=== PATIENT | male | born 1965 | race African-American/Black ===

== ENCOUNTER 2018-09-11 08:09 | Day surgery (SDC) | payer OTHER ==
[2018-09-10 11:56] VITALS: BMI 40.3
[2018-09-11 10:12] VITALS: TEMP 97.7
[2018-09-11 13:46] VITALS: BP 104/63; PULSE 70
--- NOTE | 2018-09-12 17:26 | PATH ---
Surgical Pathology Report Patient Name: ROXANE STAPLETON [facility]. Rec. #: [id number] /Age/Gender: 1965 (Age: 52) / M Account: [id number] Location: U-ENDOSCOPY Taken: 09/11/2018 Received: 09/11/2018 Reported: 09/12/2018 Physicians: Kike Griffin M.D. Specimen(s) Received A: BX RIGHT COLON POLYP B: BX DISTAL TRANSVERSE COLON POLYP Clinical History Colon cancer, screening Postoperative diagnosis: Diverticulosis, right colon polyp and distal transverse colon polyp Final Diagnosis A. COLON, RIGHT, POLYP, POLYPECTOMY: POLYPOID COLONIC MUCOSA WITH MILD CHRONIC ACTIVE COLITIS INCLUDING INCREASED ACUTE AND CHRONIC INFLAMMATORY INFILTRATE WITHIN LAMINA PROPRIA, MILD ARCHITECTURAL DISTORTION, AND PROMINENT LYMPHOID AGGREGATES. NO GRANULOMA OR DYSPLASIA IDENTIFIED. B. DISTAL TRANSVERSE COLON, POLYP, POLYPECTOMY: POLYPOID COLONIC MUCOSA WITH MILD CHRONIC ACTIVE COLITIS AND PROMINENT LYMPHOID AGGREGATES. NO GRANULOMA OR DYSPLASIA IDENTIFIED. Comment: Findings are non-specific. Differential diagnosis is broad, includes infection, medication, diverticular disease, and inflammatory bowel disease. Suggest clinical and endoscopic correlation. Electronically Signed Ines Blanchard M.D. Gross Description A. Received in formalin, labeled "right colon polyp" is a hilario, irregular portion of soft tissue measuring 0.5 cm. in greatest dimension. The specimen is submitted in toto in one cassette. B. Received in formalin, labeled "biopsy distal transverse colon polyp" are 3 hilario, irregular portions of soft tissue ranging from 0.1-0.3 cm. in greatest dimension. The specimens are submitted in toto in one cassette. DL/09/11/2018 saudi09/11/2018
== END 2018-09-11 11:05 | disposition home or self-care (01) ==
LOC: JASU-ENDO 08:09
PROVIDERS: ATTEND Internal Medicine Gastroenterology
PROC: 0DBL8ZX Excision of Transverse Colon, Via Natural or Artificial Opening Endoscopic, Diagnostic (ICD-10-PCS; 2018-09-11)
PROC: 0DBK8ZX Excision of Ascending Colon, Via Natural or Artificial Opening Endoscopic, Diagnostic (ICD-10-PCS; principal; 2018-09-11 09:15)
DX: Z12.11 Encounter for screening for malignant neoplasm of colon (principal); D12.2 Benign neoplasm of ascending colon; D12.3 Benign neoplasm of transverse colon; K57.30 Diverticulosis of large intestine without perforation or abscess without bleeding; K64.8 Other hemorrhoids; K52.9 Noninfective gastroenteritis and colitis, unspecified
CPT/HCPCS: 88305-TC

== ENCOUNTER 2021-09-14 15:16 | Observation (INO) | payer OTHER ==
[2021-09-14] MEDS ORDERED: SODIUM CHLORIDE 0.9% 500 ML INFUS.BAG IV ONE (16:59)
[2021-09-14 18:13] LABS: CHLORIDE 91 mmol/L (98-107); SODIUM 129 mmol/L (136-145)
[2021-09-14 18:15] LABS: CALCIUM 9.8 mg/dL (8.5-10.1)
[2021-09-14 18:16] LABS: URINE APPEARANCE CLEAR; URINE BILIRUBIN NEGATIVE (NEGATIVE); URINE COLOR YELLOW; URINE GLUCOSE (UA) 3+ (NEGATIVE); URINE KETONE 3+ (NEGATIVE); URINE LEUK ESTERASE NEGATIVE (NEGATIVE); URINE NITRITE NEGATIVE (NEGATIVE); URINE PROTEIN NEGATIVE (NEGATIVE); URINE UROBILINOGEN 0.2 mg/dL (0.2-1.0)
[2021-09-14 18:17] LABS: VENOUS BASE EXCESS -4.1 mmol/L (-2-2); VENOUS O2 SATURATION 95.2 % (70-80); VENOUS PH 7.38 (7.310-7.410)
[2021-09-14 18:17] LABS: ALBUMIN 4.2 g/dl (3.4-5.0); ANION GAP 16 MMOL/L (8-16); CO2 22 mmol/L (21-32)
[2021-09-14 18:20] LABS: CREATININE 1.4 mg/dL (0.55-1.3); SGOT/AST 21 U/L (15-37); SGPT/ALT 35 U/L (13-61); TOT PROT 7.8 g/dl (6.4-8.2)
[2021-09-14 18:21] LABS: BILIRUBIN,TOTAL 0.5 mg/dL (0.2-1)
[2021-09-14 18:23] LABS: ALK PHOS 105 U/L (45-117)
[2021-09-14 18:50] LABS: BASO % 0.6 % (0-2.0); EOS % 0.3 % (0-4.5); HEMATOCRIT 44.4 % (35.4-49); HEMOGLOBIN 13.6 GM/dL (11.7-16.9); LYMPH % 28.8 % (8-40); MCH 21.8 pg (25.7-33.7); MCHC 30.8 g/dl (32.0-35.9); MEAN CELL VOLUME 70.7 fl (80-96); NEUT % 60.3 % (42.8-82.8); PLATELET COUNT 176 10^3/uL (134-434); RBC 6.27 M/mm3 (4.00-5.60); RDW 14.7 % (11.9-15.9); WHITE BLOOD COUNT 5.5 K/mm3 (4.0-10.0)
[2021-09-14 19:33] LABS: GLUCOSE,RANDOM 552 mg/dL (74-106)
[2021-09-14] MEDS ORDERED: DEXTROSE 50%-WATER - 25 GM/50 ML VIAL IVPUSH PRN (19:43)
[2021-09-14] MEDS ORDERED: INSULIN REGULAR 100 UNITS in SODIUM CHLORIDE 99 ML IVPB SCH (19:45)
[2021-09-14] MEDS ORDERED: SODIUM CHLORIDE 0.9%/KCL 20 MEQ/1,000 ML INFUS.BAG IV SCH (20:00)
[2021-09-14 20:23] LABS: ANISOCYTOSIS 2+; MACROCYTOSIS 0; OVALOCYTE 1+; PLATELET ESTIMATE NORMAL; TARGET CELLS 1+
[2021-09-15 00:03] LABS: CALCIUM 8.7 mg/dL (8.5-10.1)
[2021-09-15 00:04] LABS: BLOOD UREA NITROGEN 10.1 mg/dL (7-18)
[2021-09-15 00:07] LABS: CREATININE 1.2 mg/dL (0.55-1.3)
[2021-09-15] MEDS ORDERED: DEXTROSE 5%-0.45% SALINE 1,000 ML IV SCH (03:45)
[2021-09-15] MEDS: INSULIN SLIDING SCALE (NOVOLOG) 1 VIAL SQ SCH ×4 (07:01→21:21)
[2021-09-15 09:08] LABS: BASO % 0.5 % (0-2.0); EOS % 2.8 % (0-4.5); HEMATOCRIT 39.3 % (35.4-49); HEMOGLOBIN 11.9 GM/dL (11.7-16.9); LYMPH % 43.6 % (8-40); MCH 21.5 pg (25.7-33.7); MCHC 30.3 g/dl (32.0-35.9); MEAN PLT VOLUME 10.8 fl (7.5-11.1); MONO % 10.3 % (3.8-10.2); NEUT % 42.8 % (42.8-82.8); PLATELET COUNT 151 10^3/uL (134-434); RBC 5.54 M/mm3 (4.00-5.60); RDW 14.6 % (11.9-15.9); WHITE BLOOD COUNT 5.3 K/mm3 (4.0-10.0)
[2021-09-15] MEDS ORDERED: HEPARIN NA (PORCINE) 5,000 UNITS/ML 1ML VIAL ONE (09:35)
[2021-09-15] MEDS: HEPARIN NA (PORCINE) 5,000 UNITS/ML 1ML VIAL SQ SCH ×2 (09:40→21:17)
[2021-09-15 10:09] LABS: BLOOD UREA NITROGEN 8.4 mg/dL (7-18); CALCIUM 8.2 mg/dL (8.5-10.1)
[2021-09-15 10:11] LABS: MAGNESIUM 2.1 mg/dL (1.8-2.4)
[2021-09-15 10:14] LABS: BILIRUBIN,TOTAL 0.6 mg/dL (0.2-1); CREATININE 0.9 mg/dL (0.55-1.3)
[2021-09-15 10:18] LABS: ALBUMIN 3.2 g/dl (3.4-5.0)
[2021-09-15] MEDS ORDERED: glipiZIDE-XL 5 MG TAB.ER.24 PO ONE (10:51)
[2021-09-15] MEDS ORDERED: ACETAMINOPHEN 325 MG TABLET (FP) PO PRN (12:16)
[2021-09-15] MEDS ORDERED: ACETAMINOPHEN 325 MG TABLET (FP) ONE (12:53)
[2021-09-15] MEDS ORDERED: FAMOTIDINE 20 MG TABLET ONE (12:56)
[2021-09-15] MEDS: FAMOTIDINE 20 MG TABLET PO SCH ×2 (12:57→21:17)
[2021-09-15 14:14] LABS: INR 0.99 (0.83-1.09); PROTHROMBIN TIME (PATIENT) 11.4 SEC (9.7-13.0)
[2021-09-15 15:50] VITALS: BMI 36.7
[2021-09-15] MEDS: metFORMIN HCL 500 MG TABLET (FP) PO SCH (16:36)
[2021-09-16 05:32] VITALS: BP 124/74
[2021-09-16] MEDS: INSULIN SLIDING SCALE (NOVOLOG) 1 VIAL SQ SCH ×2 (06:06→12:11)
[2021-09-16] MEDS: metFORMIN HCL 500 MG TABLET (FP) PO SCH ×2 (06:06→16:01)
[2021-09-16] MEDS ORDERED: glipiZIDE-XL 10 MG TAB.ER.24 (FP) PO SCH (07:00)
[2021-09-16] MEDS: HEPARIN NA (PORCINE) 5,000 UNITS/ML 1ML VIAL SQ SCH (09:55)
[2021-09-16] MEDS: FAMOTIDINE 20 MG TABLET PO SCH (09:55)
[2021-09-16] MEDS ORDERED: INSULIN (LEVEMIR) 100 UNITS/ML UNITS SQ SCH (10:00)
[2021-09-16] MEDS ORDERED: ENALAPRIL MALEATE 2.5 MG TABLET PO SCH (10:00)
[2021-09-16 10:19] LABS: BILIRUBIN,TOTAL 0.6 mg/dL (0.2-1); TOT PROT 5.7 g/dl (6.4-8.2)
[2021-09-16 10:22] LABS: CREATININE 0.9 mg/dL (0.55-1.3)
[2021-09-16 10:23] LABS: CALCIUM 8.5 mg/dL (8.5-10.1)
[2021-09-16 10:24] LABS: BLOOD UREA NITROGEN 8.3 mg/dL (7-18)
[2021-09-16] MEDS ORDERED: INSULIN (NOVOLOG) ASPART 100 UNITS/ML 10ML VIAL ONE (12:10)
[2021-09-16 13:10] VITALS: PULSE 95; TEMP 98.2
== END 2021-09-16 17:14 | disposition home or self-care (01) ==
LOC: JER 15:16 → UNDOADMOB 09-15 03:25 → JERBED 09-15 03:25 → INTOOBSV 09-15 03:25 → JERBED 09-15 11:22 → J8W 09-15 15:19
PROVIDERS: ADMIT Internal Medicine; ATTEND Internal Medicine
PROC: 3E013VG Introduction of Insulin into Subcutaneous Tissue, Percutaneous Approach (ICD-10-PCS; principal; 2021-09-15)
PROC: 3E033VG Introduction of Insulin into Peripheral Vein, Percutaneous Approach (ICD-10-PCS; 2021-09-15)
PROC: 3E033GC Introduction of Other Therapeutic Substance into Peripheral Vein, Percutaneous Approach (ICD-10-PCS; 2021-09-15)
PROC: 3E023GC Introduction of Other Therapeutic Substance into Muscle, Percutaneous Approach (ICD-10-PCS; 2021-09-15)
DX: E13.10 Other specified diabetes mellitus with ketoacidosis without coma (principal); R63.1 Polydipsia; R63.2 Polyphagia; E66.9 Obesity, unspecified; Z68.36 Body mass index [BMI] 36.0-36.9, adult; H53.8 Other visual disturbances; E78.5 Hyperlipidemia, unspecified; G20 Parkinson's disease; J45.909 Unspecified asthma, uncomplicated; R35.0 Frequency of micturition; R53.81 Other malaise; Z20.822 Contact with and (suspected) exposure to COVID-19; Z29.9 Encounter for prophylactic measures, unspecified
CPT/HCPCS: 36415; 71046-TC-FY; 80048; 80053; 80061; 81003; 82010; 82803; 82962; 83036; 83735; 85025; 85610; 87040; 87086; 99285-25; C9803; G0378; J1644; U0003; U0005

== ENCOUNTER 2023-02-05 18:01 | Emergency (ER) | payer OTHER ==
[2023-02-05 18:09] VITALS: BP 134/80; PULSE 87; RESP 18; TEMP 99.3; BMI 411.7
[2023-02-05] MEDS ORDERED: KETOROLAC TROMETHAMINE 15 MG/ML VIAL IM ONE (20:03)
[2023-02-05] MEDS ORDERED: ACETAMINOPHEN 500 MG TABLET (FP) PO ONE (20:03)
[2023-02-05] MEDS ORDERED: METHOCARBAMOL 500 MG TABLET PO ONE (20:04)
[2023-02-05] MEDS ORDERED: LIDOCAINE 5% TOPICAL PATCH TP ONE (20:04)
[2023-02-05] MEDS ORDERED: LIDOCAINE 5% TOPICAL PATCH ONE (20:24)
[2023-02-05] MEDS ORDERED: METHOCARBAMOL 500 MG TABLET ONE (20:24)
[2023-02-05] MEDS ORDERED: ACETAMINOPHEN 325 MG TABLET (FP) ONE (20:24)
[2023-02-05] MEDS ORDERED: KETOROLAC TROMETHAMINE 15 MG/ML VIAL ONE (20:25)
[2023-02-06] MEDS ORDERED: LIDOCAINE PATCH REMOVAL MC SCH (08:00)
== END 2023-02-05 22:55 | disposition home or self-care (01) ==
LOC: JER 18:01
PROC: 3E0233Z Introduction of Anti-inflammatory into Muscle, Percutaneous Approach (ICD-10-PCS; principal; 2023-02-05)
DX: M54.50 Low back pain, unspecified (principal); M25.551 Pain in right hip
CPT/HCPCS: 74176-TC; 99284-25